=== PATIENT | male | born 1970 | race Hispanic/Latino ===

== ENCOUNTER 2017-09-05 15:49 | Emergency (ER) | payer BC ==
[2017-09-05 15:59] VITALS: BP 138/84
--- NOTE | 2017-09-05 16:32 | Emergency Department Report ---
Upper Extremity - HPI Chief Complaint: Extremity Injury, Upper Stated Complaint: LEFT SECOND FINGER INJURE Time Seen by Provider: 09/05/17 16:20 Upper Extremity: Left Hand, Left Index Finger (patient has a 16-gauge nail through the tip of his left index finger) Occurred When: Today Mechanism: Other (puncture wound) Severity: moderate Symptoms: Yes Pain with Movement, Yes Limited Range of Movement, Yes Swelling, No Numbness, No Weakness, No Bruising/Ecchymosis, No Laceration or Abrasion Other History: Patient is a 47-year-old male with a history of diabetes metformin MD emergency room with a puncture wound by nail through his left index finger. Puncture wound done with high-powered nail gun. Up to pull it out and was unable to. Patient states the pain is at a 3 out of 10 at this point. He states is worse with movement and better with rest and not moving. Patient denies fever or redness. Patient denies chest pain or shortness of breath. ED Review of Systems ROS: Stated complaint: LEFT SECOND FINGER INJURE Other details as noted in HPI Comment: All other systems reviewed and negative Constitutional: no symptoms reported, see HPI Eyes: as per HPI ENT: as per HPI Respiratory: no symptoms reported Cardiovascular: as per HPI Endocrine: no symptoms reported, see HPI Gastrointestinal: as per HPI Genitourinary: as per HPI Musculoskeletal: as per HPI Skin: as per HPI Neurological: as per HPI Psychiatric: as per HPI Hematological/Lymphatic: as per HPI ED Past Medical Hx - Past Medical History Previous Medical History?: Yes Hx Diabetes: Yes (borderline) - Surgical History Past Surgical History?: Yes Additional Surgical History: right shoulder - Social History Smoking Status: Current Every Day Smoker Substance Use Type: Prescribed - Medications Home Medications: Home Medications Medication Instructions Recorded Confirmed Last Taken Type Sulfamethoxazole/Trimethoprim 1 each PO BID #20 tablet 09/05/17 Unknown Rx [Bactrim Ds Tablet] Upper Extremity Exam - Exam General: Vital signs noted. No distress. Alert and acting appropriately. Lungs clear to auscultation normal limits CV exam. Head and Torso: No HEENT Abnormality, No Neck Tenderness, No Chest/Lungs Abnormality, No Abdominal Tenderness, No Back Tenderness Shoulder Exam: No Shoulder Tenderness, No Clavicle Tenderness, No Normal Range of Motion in Shoulder, No Shoulder Deformity, No AC Joint Tenderness Elbow: No Elbow Tenderness, No Normal Range of Motion in Elbow, No Elbow Deformity Forearm: No Forearm Tenderness, No Forearm Deformity, No Pain with Pronation, No Pain with Supination Wrist: No Wrist Tenderness, No Normal ROM in Wrist, No Wrist Deformity, No Snuffbox Tenderness, No Pain with Axial Thumb Compression Hand: Yes Hand Deformity, Yes Digit Tenderness, Yes Digit(s) Deformity (nail through distal left index finger), No Hand Tenderness, No Normal ROM in Digit(s) CMS Exam: Yes Broken Skin (puncture wound to left index finger), Yes Normal Distal Pulses, Yes Normal Capillary Refill, Yes Normal Distal Sensation ED Course Vital Signs 09/05/17 15:54 Temperature 98.2 F Pulse Rate 76 Respiratory 20 Rate Blood Pressure 138/84 O2 Sat by Pulse 96 Oximetry - Procedure Description Procedures done: Site cleaned and draped in a sterile fashion and digital block done with 1% lidocaine. Once for anesthesia achieved, the nail removed without difficulty. Will obtain post removal film to verify that the foreign body in its entirety has been removed. Also will place patient on antibiotics. ED Medical Decision Making - Radiology Data Radiology results: report reviewed (left hand x-ray review. Per radiology report, No bone involvement metallic object noted to the distal aspect of the left index finger) interpreted by me: Second hand x-ray interpreted by me. No without object noted on film. - Medical Decision Making 47-year-old with foreign body in distal left index finger with no bone involvement./ Will remove foreign body, see procedure note - Differential Diagnosis fx, punture wound. foreign body. tendon involvement. Critical care attestation.: If time is entered above; I have spent that time in minutes in the direct care of this critically ill patient, excluding procedure time. ED Disposition Clinical Impression: Puncture wound of index finger, Foreign body (FB) in soft tissue Disposition: DC-01 TO HOME OR SELFCARE Is pt being admited?: No Does the pt Need Aspirin: No Condition: Stable Instructions: Soft Tissue Foreign Body (ED), Puncture Wound (ED) Additional Instructions: Patient to follow-up with orthopedics in 2-3 days. Patient to take medications as prescribed. Patient to take Tylenol and ibuprofen when necessary for pain. Patient to follow-up in ER if condition worsens. Patient to see primary care in 3-5 days. Prescriptions: Sulfamethoxazole/Trimethoprim [Bactrim Ds Tablet] 1 each PO BID #20 tablet Referrals: PRIMARY CARE, [Primary Care Provider] - 3-5 Days Forms: Work/School Release Form(ED) Time of Disposition: 17:52
--- NOTE | 2017-09-05 16:32 | XRay Report ---
FINAL REPORT PROCEDURE: XR FINGER(S) 2+V LT TECHNIQUE: Three views of the left 2nd finger are obtained HISTORY: left index finger with a nail through the finger COMPARISON: No prior studies are available for comparison. FINDINGS: A metallic nail is seen in the distal aspect of the left 2nd finger. This passes anterior to the distal phalanx. No fracture is seen. IMPRESSION: Nail is seen in the palmar soft tissues of the distal aspect of the 2nd finger. No bony involvement or fracture is seen.
[2017-09-05] MEDS ORDERED: XYLOCAINE 1% 20 mL ONE (16:41)
[2017-09-05] MEDS ORDERED: XYLOCAINE 1% 20 mL INFILTRATI ONE (16:51)
--- NOTE | 2017-09-05 18:01 | XRay Report ---
FINAL REPORT PROCEDURE: XR HAND 2V LT TECHNIQUE: Two views of the left hand are obtained HISTORY: post foreign body removal film COMPARISON: X-ray from same day FINDINGS: The metallic nail has been removed from the 2nd finger. Mild soft tissue swelling is seen. No gas is seen in the soft tissues. No fracture is seen. IMPRESSION: No radiopaque foreign body is seen.
== END 2017-09-05 18:12 | disposition home or self-care (01) ==
LOC: ED 15:49
DX: S61.241A Puncture wound with foreign body of left index finger without damage to nail, initial encounter (principal); E11.9 Type 2 diabetes mellitus without complications; F17.200 Nicotine dependence, unspecified, uncomplicated; W45.0XXA Nail entering through skin, initial encounter; Y93.89 Activity, other specified; Y92.89 Other specified places as the place of occurrence of the external cause; Y99.8 Other external cause status